=== PATIENT | male | born 1980 | race Caucasian/White ===

== ENCOUNTER 2018-10-02 10:47 | Emergency (ER) | payer SELFPAY ==
[~2018-10-02] VITALS: Ht 167.6 cm; Wt 127.8 kg
[2018-10-02 11:20] VITALS: Ht 167.6 cm; Wt 127.8 kg
[2018-10-02] MEDS ORDERED: DIPHTH/TET/ACEL PERTUSS (ADULT) 0.5 ML VIAL IM* ONE (13:30)
[2018-10-02] MEDS ORDERED: IBUPROFEN 600 MG TAB PO ONE (13:30)
[2018-10-02] MEDS ORDERED: AMOX1TAB10 PO (13:36)
[2018-10-02] MEDS ORDERED: IBUP-1542 PO (13:36)
--- NOTE | 2018-10-02 13:39 | ERD ---
ER Documentation Chief Complaint Chief Complaint DOG BITE 1 HOUR AGO ON RT KNEE HPI 38-year-old male presents with dog bite to the right knee [place] walking on the [address]. It was a domesticated dog with a collar. There is a small puncture in the right lateral knee with some bruising. He denies restricted range of motion weakness, redness, discharge. Tetanus is not up-to-date. ROS All systems reviewed and are negative except as per history of present illness. Medications Home Meds Active Scripts Ibuprofen* (Motrin*) 600 Mg Tab, 600 MG PO Q6, #15 TAB Prov:TIAN WAY MD 10/02/18 Amoxicillin/Potassium Clav (Amox-Clav 875-125 mg Tablet) 875-125 mg Tab, 1 TAB PO BID for 7 Days, #14 TAB Prov:TIAN WAY MD 10/02/18 Allergies Allergies: Coded Allergies: No Known Allergy (Unverified , 10/02/18) PMhx/Soc Medical and Surgical Hx: pt denies Medical Hx, pt denies Surgical Hx Hx Alcohol Use: No Hx Substance Use: No Hx Tobacco Use: No Smoking Status: Never smoker FmHx Family History: No diabetes, No coronary disease, No other Physical Exam Vitals Vital Signs Date Temp Pulse Resp B/P (MAP) Pulse Ox O2 O2 Flow FiO2 Time Delivery Rate 10/02/18 98.2 60 18 144/96 100 Room Air 13:57 (112) 10/02/18 98.5 70 16 147/86 98 11:20 (106) Physical Exam Const: No acute distress Head: Atraumatic Eyes: Normal Conjunctiva ENT: Normal External Ears, Nose and Mouth. Neck: Full range of motion. No meningismus. Resp: Clear to auscultation bilaterally Cardio: Regular rate and rhythm, no murmurs Abd: Soft, non tender, non distended. Normal bowel sounds Skin: No petechiae or rashes Back: No midline or flank tenderness Ext: No cyanosis, or edema. Approximately 0.5 cm sealed puncture wound with scab without redness. There is some surrounding bruising. There is no bony tenderness or deformities. Right lower extremity is neurovascular intact. Neur: Awake and alert Psych: Normal Mood and Affect Results 24 hrs Current Medications Medications Dose Sig/Isabel Start Time Status Last (Trade) Ordered Route PRN Stop Time Admin Dose Reason Admin Ibuprofen 600 mg ONCE ONCE 10/02/18 DC 10/02/18 (Motrin) PO 13:30 10/02/18 13:22 13:31 Diphtheria/ 0.5 ml ONCE ONCE 10/02/18 DC 10/02/18 Tetanus/Acell IM* 13:30 10/02/18 13:23 Pertussis 13:31 (Adacel) Procedures/MDM Patient presents with a dog bite on the right knee. There is no signs of infection, ischemia, deficits. Doubt rabies given domesticated dog in this locale. Patient was given a tetanus booster. Will treat with Augmentin, ibuprofen, recommendations for recheck in 2 days for signs of infection, otherwise return precautions for new or worsening symptoms. The patient was stable with no new complaints during the ER course. Clinically, there is no current evidence to suggest meningitis, sepsis, acute abdomen, pneumonia, stroke, acute coronary syndrome, pulmonary embolism, aortic dissection or any other emergent condition appearing to require further evaluation or hospi talization. Patient counseled regarding my diagnostic impression and care plan. Prior to discharge all questions answered. Pt agrees with treatment plan and understands strict return precautions. Pt is instructed to follow up with primary care provider within 24-48 hours. Precautionary instructions provided including instructions to return to the ER if not improving or for any worsening or changing symptoms or concerns. Departure Diagnosis: Primary Impression: Bite by animal Condition: Stable Patient Instructions: Dog Bite Additional Instructions: Recheck in 2-3 days for redness, swelling, fevers, new or worsening symptoms. Use soap and water only on the wound. TIAN WAY MD Oct 02, 2018 13:39
[2018-10-02 13:57] VITALS: BP 144/96; PULSE 60; RESP 18
== END 2018-10-02 13:55 | disposition home or self-care (01) ==
LOC: FTE 10:47
DX: S81.051A Open bite, right knee, initial encounter (principal); W54.0XXA Bitten by dog, initial encounter; Y92.9 Unspecified place or not applicable; Z23 Encounter for immunization
CPT/HCPCS: 90471; 90715